=== PATIENT | female | born 2000 | race Caucasian/White ===

== ENCOUNTER → 2020-01-12 15:30 | Outpatient (BNVA) | payer MEDICAID, SELFPAY | PROVIDERS: Family Provider Nurse Practitioner Family; PCP Nurse Practitioner Family; Visit Provider Counselor Professional | DX: F41.1 Generalized anxiety disorder (principal); F33.1 Major depressive disorder, recurrent, moderate | CPT/HCPCS: 90832 ==

== ENCOUNTER → 2020-01-20 15:15 | Outpatient (BNVA) | payer MEDICAID, SELFPAY | PROVIDERS: Family Provider Nurse Practitioner Family; PCP Nurse Practitioner Family; Visit Provider Counselor Professional | DX: F41.1 Generalized anxiety disorder (principal); F33.1 Major depressive disorder, recurrent, moderate | CPT/HCPCS: 90832 ==

== ENCOUNTER → 2020-01-26 14:56 | Outpatient (BNVA) | payer MEDICAID, SELFPAY | PROVIDERS: Family Provider Nurse Practitioner Family; PCP Nurse Practitioner Family; Visit Provider Family Medicine | DX: F41.1 Generalized anxiety disorder (principal); F41.0 Panic disorder [episodic paroxysmal anxiety]; E78.5 Hyperlipidemia, unspecified; E78.2 Mixed hyperlipidemia; Z28.21 Immunization not carried out because of patient refusal; F33.1 Major depressive disorder, recurrent, moderate; Z13.1 Encounter for screening for diabetes mellitus | CPT/HCPCS: 80048; 80061 ==

== ENCOUNTER → 2020-01-27 15:04 | Outpatient (BNVA) | payer MEDICAID, SELFPAY | PROVIDERS: Family Provider Nurse Practitioner Family; PCP Nurse Practitioner Family; Visit Provider Counselor Professional | DX: F41.1 Generalized anxiety disorder (principal); F33.1 Major depressive disorder, recurrent, moderate | CPT/HCPCS: 90832 ==

== ENCOUNTER → 2020-02-11 15:09 | Outpatient (BNVA) | payer MEDICAID, SELFPAY | PROVIDERS: Family Provider Nurse Practitioner Family; PCP Nurse Practitioner Family; Visit Provider Counselor Professional | DX: F41.1 Generalized anxiety disorder (principal); F33.1 Major depressive disorder, recurrent, moderate | CPT/HCPCS: 90832 ==

== ENCOUNTER → 2020-02-18 15:04 | Outpatient (BNVA) | payer MEDICAID, SELFPAY | PROVIDERS: Family Provider Nurse Practitioner Family; PCP Nurse Practitioner Family; Visit Provider Counselor Professional | DX: F33.1 Major depressive disorder, recurrent, moderate (principal) | CPT/HCPCS: 90832 ==

== ENCOUNTER → 2020-03-04 15:07 | Outpatient (BNVA) | payer MEDICAID, SELFPAY | PROVIDERS: Family Provider Nurse Practitioner Family; PCP Nurse Practitioner Family; Visit Provider Counselor Professional | DX: F33.1 Major depressive disorder, recurrent, moderate (principal) | CPT/HCPCS: 90832 ==

== ENCOUNTER → 2020-03-17 15:06 | Outpatient (BNVA) | payer MEDICAID, SELFPAY | PROVIDERS: Family Provider Nurse Practitioner Family; PCP Nurse Practitioner Family; Visit Provider Counselor Professional | DX: F33.2 Major depressive disorder, recurrent severe without psychotic features (principal) | CPT/HCPCS: 90832 ==

== ENCOUNTER → 2020-03-24 15:00 | Outpatient (BNVA) | payer MEDICAID, SELFPAY | PROVIDERS: Family Provider Nurse Practitioner Family; PCP Nurse Practitioner Family; Visit Provider Counselor Professional | DX: F33.1 Major depressive disorder, recurrent, moderate (principal) | CPT/HCPCS: 90832 ==

== ENCOUNTER → 2020-06-08 15:17 | Outpatient (BNVA) | payer MEDICAID, SELFPAY | PROVIDERS: Family Provider Nurse Practitioner Family; PCP Nurse Practitioner Family; Visit Provider Family Medicine | DX: R39.9 Unspecified symptoms and signs involving the genitourinary system (principal); F41.1 Generalized anxiety disorder; Z30.011 Encounter for initial prescription of contraceptive pills; N92.6 Irregular menstruation, unspecified; N76.0 Acute vaginitis; B96.89 Other specified bacterial agents as the cause of diseases classified elsewhere | CPT/HCPCS: 81000 ==

== ENCOUNTER 2024-06-29 13:48 | Emergency (ER) | payer SELFPAY ==
[2024-06-29 13:49] VITALS: BP 138/99; PULSE 73; RESP 16; TEMP 36.6; O2SAT 100; BMI 41.5
--- NOTE | 2024-06-29 13:54 | ECG_ITS ---
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
--- NOTE | 2024-06-29 13:58 | W.ED.SYNCOPE ---
HPI - Syncope General: Chief Complaint: Syncope Stated Complaint: syncope; weakness Time Seen by Provider: 06/29/24 13:52 History of Present Illness: 23-year-old female comes in today for complaints of weakness and syncopal episode. Patient reported that she felt like she was going to get sick at work and throughout and after throwing up she passed out. Patient has a history of mental health disorder and high cholesterol. Patient presently takes venlafaxine 37-1/2 mg, Lipitor 40 mg, and doxepin 6 mg. Patient was brought in by EMS after her fainting episode. Patient was given Zofran for nausea. Patient appears nontoxic. 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 Patient presently is on her menstrual cycle. Related Data Home Medications ?Medication ?Instructions ?Recorded ?Confirmed albuterol sulfate 90 mcg/actuation 2 puff inhalation Q6H PRN 08/21/19 11/30/20 aerosol inhaler Previous Rx's ?Medication ?Instructions ?Recorded hydroxyzine HCl 10 mg tablet 10 mg PO TID PRN anxiety 30 days 01/26/20 #90 tabs atorvastatin 20 mg tablet (Lipitor) 20 mg PO DAILY 90 days #90 tabs 02/17/20 sertraline 50 mg tablet 75 mg (1.5 x 50 mg) PO DAILY 30 08/18/20 days #30 tabs norgestimate 0.25 mg-ethinyl See Rx Instructions .Route 10/18/20 estradiol 35 mcg tablet (Sprintec .COMPLEX #28 tabs (28)) nitrofurantoin 100 mg PO BID 5 days #10 caps 06/29/24 monohydrate/macrocrystals 100 mg capsule (Macrobid) ondansetron HCl 4 mg tablet 4 mg PO Q8H PRN nausea and 06/29/24 vomiting #9 tabs Allergies Allergy/AdvReac Type Severity Reaction Status Date / Time No Known Allergies Allergy Verified 10/11/20 11:07 Review of Systems General: Reports: 10 or more systems reviewed and unremarkable except in HPI and below PFSH ED PFSH: Medical History MAXINE (generalized anxiety disorder) Hyperlipidemia Major depression Surgical History H/O eye surgery H/O oral surgery Family History Grandmother Hypertension Diabetes Family/Other Diabetes aunts and uncles Social History Smoking and tobacco/nicotine status: never used tobacco/nicotine Alcohol intake: never Substance/Drug Use: never Current gender identity: Female Physical Exam Const: COMMON NORMALS: alert HENMT: COMMON NORMALS: normocephalic HEAD & SCALP: normocephalic Neck/C-Spine: COMMON NORMALS: full ROM Resp: COMMON NORMALS: normal respiratory effort Cardio: COMMON NORMALS: regular rate RATE: regular rate GI: COMMON NORMALS: non-tender Back/Pelvis: COMMON NORMALS: thoracic and lumbar spine normal to inspection Extremity: COMMON NORMALS: full ROM Neuro: SENSORIUM/ORIENTATION: Yes alert Skin: COMMON NORMALS: turgor normal GENERAL SKIN EXAM: turgor normal Course Vital Signs: Vital signs: Vital Signs Temperature 97.8 F 06/29/24 13:49 Pulse Rate 72 06/29/24 14:05 Respiratory Rate 16 06/29/24 13:49 Blood Pressure 109/86 06/29/24 14:05 Pulse Oximetry 100 06/29/24 13:49 Oxygen Delivery Me thod Room Air 06/29/24 13:49 MDM - Syncope Medical Decision Making 23-year-old female comes in today after episodes of syncope at work. Patient appears nontoxic. Patient appears no acute distress. Respirations are even. Lungs are clear to auscultation. Skin is warm and dry. Vital signs are normal. Differential diagnosis includes not limited to dehydration, viral syndrome, vasovagal syncope. CBC noted a 12,000 white count, hemoglobin 13.8, BMP was unremarkable. Urinalysis had increased red blood cells, leukocyte esterases, and white blood cells with few squamous cells. Patient was presently on her menstrual cycle. Believe patient probably has a urinary tract infection as evidenced by the increase white blood cell count and a number of white blood cells in her urine along with leukocyte esterases. Patient was given a dose of Rocephin through the IV and will continue on Macrobid at home along with Zofran for nausea. Patient was given IV fluids for the mild dehydration. Patient reports understanding of care plan need for follow-up or return to the ER. Lab Data 06/29/24 14:10 06/29/24 14:10 Laboratory Results WBC 12.33 10^3/uL (3.29-11.43) H 06/29/24 14:10 RBC 4.75 10^6/uL (3.85-5.65) 06/29/24 14:10 Hgb 13.80 g/dL (11.27-16.99) 06/29/24 14:10 Hct 40.6 % (36-47) 06/29/24 14:10 MCV 85.5 fl (85-98) 06/29/24 14:10 MCH 29.1 pg (27-33) 06/29/24 14:10 MCHC 34.0 g/dL (30-55) 06/29/24 14:10 RDW 12.2 % (12.1-15.1) 06/29/24 14:10 Plt Count 207 10^3/cmm (157-399) 06/29/24 14:10 MPV 11.2 fL (7.4-10.4) H 06/29/24 14:10 Neut % (Auto) 74.9 % 06/29/24 14:10 Lymph % (Auto) 16.4 % 06/29/24 14:10 [place] % (Auto) 6.7 % 06/29/24 14:10 Eos % (Auto) 1.1 % 06/29/24 14:10 Baso % (Auto) 0.5 % 06/29/24 14:10 Neut # (Auto) 9.25 10^3/uL (1.8-7.7) H 06/29/24 14:10 Lymph # (Auto) 2.0 10^3/uL (0.8-4.8) 06/29/24 14:10 [place] # (Auto) 0.8 10^3/uL (0.2-0.9) 06/29/24 14:10 Eos # (Auto) 0.1 10^3/uL (0.0-0.8) 06/29/24 14:10 Baso # (Auto) 0.1 10^3/uL (0.0-0.1) 06/29/24 14:10 Nucleated RBC % (auto) 0 % 06/29/24 14:10 Nucleated RBCs # 0.0 /100WBC 06/29/24 14:10 Sodium 138 mmol/L (136-145) 06/29/24 14:10 Potassium 3.9 mmol/L (3.5-5.1) 06/29/24 14:10 Chloride 103 mmol/L (98-107) 06/29/24 14:10 Carbon Dioxide 22 mmol/L (22-29) 06/29/24 14:10 Anion Gap 16.9 (5-19) 06/29/24 14:10 BUN 11 mg/dL (6-20) 06/29/24 14:10 Creatinine 0.7 mg/dL (0.5-0.9) 06/29/24 14:10 GFR Calculation 102.8 mL/min (90-130) 06/29/24 14:10 Glucose 91 mg/dL (65-115) 06/29/24 14:10 Calculated Osmolality 285 mOsm/kg (285-295) 06/29/24 14:10 Calcium 9.4 mg/dL (8.5-10.5) 06/29/24 14:10 HCG, Qual Negative (Negative) 06/29/24 14:10 Urine Color Dark yellow (Yellow) A 06/29/24 15:01 Urine Appearance Cloudy (CLEAR) A 06/29/24 15:01 Urine pH 6 (5-7) 06/29/24 15:01 Ur Specific [place] 1.015 (1.005-1.030) 06/29/24 15:01 Urine Protein 1+ (Negative) H 06/29/24 15:01 Urine Glucose (UA) Norm (Normal) 06/29/24 15:01 Urine Ketones Negative (Negative) 06/29/24 15:01 Urine Blood 3+ (Negative) H 06/29/24 15:01 Urine Nitrate Negative (Negative) 06/29/24 15:01 Urine Bilirubin Neg (Negative) 06/29/24 15:01 Urine Urobilinogen 1 mg/dL (Negative) H 06/29/24 15:01 Ur Leukocyte Esterase 1+ (Negative) H 06/29/24 15:01 Urine RBC >100 /hpf (0-2) H 06/29/24 15:01 Urine WBC 11-20 /hpf (0-5) H 06/29/24 15:01 Ur Squamous Epith Cells 0-5 /hpf (0-5) 06/29/24 15:01 Amorphous Sediment Not Reportable 06/29/24 15:01 Urine Bacteria 1+ /hpf (NONE) H 06/29/24 15:01 Hyaline Casts 0.81 /lpf 06/29/24 15:01 No radiology studies performed this visit EKG Data EKG 1: I personally reviewed and interpreted this EKG as follows: EKG interpretation date: 06/29/24 EKG interpretation time: 14:03 Prior EKG tracings: not available for review Interpretation: EKG shows a sinus rhythm with a regular rate at [address] elevation or ectopy otherwise is seen. No prior exam was available for comparison. Computer interpretation states sinus rhythm, low QRS voltage in precordial leads, borderline EKG, unconfirmed report. Discharge Plan Discharge Patient Disposition: Home Clinical Impression: Vaso-vagal reaction UTI (urinary tract infection) Qualifiers: Urinary tract infection type: acute cystitis Hematuria presence: with hematuria Qualified Code(s): N30.01 - Acute cystitis with hematuria Condition: Stable Prescriptions: New ondansetron HCl 4 mg tablet 4 mg PO Q8H PRN (Reason: nausea and vomiting) Qty: 9 0RF nitrofurantoin monohyd/m-cryst [Macrobid] 100 mg capsule 100 mg PO BID 5 Days Qty: 10 0RF Rx Instructions: must administer with a meal/food No Action albuterol sulfate 90 mcg/actuation HFA aerosol inhaler 2 puff INHALATION Q6H PRN hydroxyzine HCl 10 mg tablet 10 mg PO TID PRN (Reason: anxiety) 30 Days Qty: 90 2RF atorvastatin [Lipitor] 20 mg tablet 20 mg PO DAILY 90 Days Qty: 90 3RF sertraline 50 mg tablet 75 mg PO DAILY 30 Days Qty: 30 0RF norgestimate-ethinyl estradiol [Sprintec (28)] 0.25-35 mg-mcg tablet See Rx Instructions .ROUTE .COMPLEX Qty: 28 0RF Dose Instruction: Take 1 tablet by mouth once daily Rx Instructions: Take 1 tablet by mouth once daily Discharge Orders: Discharge ED (Routine); Ordered 06/29/24 Ordered By: Rocky Michaud Referrals: Michaela Suarez, BASEB[employer] INSPECTOR AND REPAIRER [Primary Care Provider] - Discharge Diet: Usual diet Discharge Activity: Increase activity as tolerated Patient Instructions: Urinary Tract Infection in Women (ED) Activity Restrictions/Additional Instructions: Encourage plenty of fluids. Take antibiotic as directed. Follow-up with primary care for further instructions. Return to ED for new concerns. Print Language: Tuvaluan Coding Level of Care Code ED Last Chalker for Sae Daniel
[2024-06-29 14:05] VITALS: BP 109/81; BP 109/86; BP 119/73; PULSE 72; PULSE 91; PULSE 97
[2024-06-29 14:15] LABS: Basophils # 0.1 10^3/uL (0.0-0.1); Basophils % 0.5 %; Eosinophils # 0.1 10^3/uL (0.0-0.8); Eosinophils % 1.1 %; Hematocrit 40.6 % (36-47); Lymphocytes % 16.4 %; Mean Corpuscular Hemoglobin 29.1 pg (27-33); Mean Corpuscular Volume 85.5 fl (85-98); Mean Platelet Volume 11.2 fL (7.4-10.4); Monocytes # 0.8 10^3/uL (0.2-0.9); Monocytes % 6.7 %; Neutrophils # 9.25 10^3/uL (1.8-7.7); Neutrophils % 74.9 %; Nucleated Red Blood Cells % 0 %; Platelet Count 207 10^3/cmm (157-399); Red Blood Count 4.75 10^6/uL (3.85-5.65); Red Cell Distribution Width 12.2 % (12.1-15.1); White Blood Count 12.33 10^3/uL (3.29-11.43)
[2024-06-29 14:25] VITALS: BP 115/71; PULSE 77; RESP 14; O2SAT 99
[2024-06-29 14:26] LABS: HCG, Serum Qual Negative (Negative)
[2024-06-29 14:31] LABS: Anion Gap 16.9 (5-19); Blood Urea Nitrogen 11 mg/dL (6-20); Calcium 9.4 mg/dL (8.5-10.5); Carbon Dioxide 22 mmol/L (22-29); Chloride 103 mmol/L (98-107); Glomerular Filtration Rate 102.8 mL/min (90-130); Glucose 91 mg/dL (65-115); Osmolality Calculated 285 mOsm/kg (285-295); Potassium 3.9 mmol/L (3.5-5.1); Sodium 138 mmol/L (136-145)
[2024-06-29 14:55] VITALS: PULSE 71; RESP 17; O2SAT 100
[2024-06-29 15:07] LABS: Add Urine Microscopic? NO
[2024-06-29 15:09] LABS: Bilirubin Urine Neg (Negative); Blood Urine 3+ (Negative); Charge for UA Resulting for Rev; Glucose Urine UA Norm (Normal); Ketones Urine Negative (Negative); Leukocyte Esterase Urine 1+ (Negative); Nitrate Urine Negative (Negative); Protein Urine 1+ (Negative); Specific Gravity, Urine 1.015 (1.005-1.030); Urine Appearance Cloudy (CLEAR); Urine Color Dark Yellow (Yellow); Urobilinogen Urine 1 mg/dL (Negative); pH Urine 6 (5-7)
[2024-06-29 15:12] LABS: Add Urine Culture? Yes; Bacteria Urine 1+ /hpf; Hyaline Casts Urine 0.81 /lpf; RBC Urine >100 /hpf (0-2); Squamous Epithelial Cell Urine 0-5 /hpf (0-5)
[2024-06-29] MEDS: cefTRIAXone 2,000 mg SDV 2000 MG IVP (15:37)
[2024-06-29 15:47] VITALS: BP 115/67; PULSE 68; RESP 17; O2SAT 93
== END 2024-06-29 15:47 | disposition home or self-care (01) ==
PROVIDERS: Emergency Provider Nurse Practitioner Family; PCP Nurse Practitioner Primary Care
DX: N30.01 Acute cystitis with hematuria (principal); R55 Syncope and collapse; E78.5 Hyperlipidemia, unspecified
CPT/HCPCS: 36415; 80048; 81003; 84703; 85025; 87086; 93005; 96374; 99284; J0696